=== PATIENT | male | born 1940 | race Caucasian/White ===

== ENCOUNTER → 2016-07-06 | Outpatient (CLI) | payer OTHER ==
[~2016-07-06] MED LIST: ACET325T96 PO; ALUM-30 PO; CHOL20005 PO; CLOTCRE33 TOP; MIRT15TA3 PO; MIRT30TA3 PO; MULT1CHW18 PO; NUTR-977 PO; OMEG10002 PO; SENN-91 PO
[2016-07-06 15:03] LABS: URINE APPEARANCE CLEAR (CLEAR); URINE BILIRUBIN NEG (NEG); URINE COLOR YELLOW; URINE NITRITE NEG (NEG); URINE SPECIFIC GRAVITY 1.026 (1.000-1.030); UROBILINOGEN NEG (NEG)
[2016-07-06 15:11] LABS: MANUAL MICROSCOPIC REQUIRED? NO; REVIEW REQ? NO
--- NOTE | 2016-07-07 07:45 | CODING QUERY NO DIAGNOSIS ---
TREATMENT RENDERED WITHOUT A DIAGNOSIS To promote full compliance with coding requirements relating to patient care, physician participation is requested in all cases of funeral car driver uncertainty. Please assist us with providing a diagnosis/symptom for the test(s) below: A diagnosis/symptom was not documented on your Order. A valid diagnosis/symptom is required to bill all insurances. Please remember that we are unable to code a diagnosis of rule out, probable, possible, questionable, or suspected. Tests that require a diagnosis: DOS 07/06 * UA C&S DIAGNOSIS: Provider Signature: Date: Thank you Syl Huerta Health Information Management Once completed, please kindly fax back to [phone] For questions please call [phone]
== END | disposition home or self-care (01) ==
LOC: C.LABSPEC 14:41
PROVIDERS: ATTEND Nurse Practitioner
DX: R32 Unspecified urinary incontinence (principal); R26.9 Unspecified abnormalities of gait and mobility; R41.82 Altered mental status, unspecified; F03.90 Unspecified dementia, unspecified severity, without behavioral disturbance, psychotic disturbance, mood disturbance, and anxiety; R68.89 Other general symptoms and signs

== ENCOUNTER 2016-10-03 18:37 | Emergency (ER) | payer OTHER ==
[2016-10-03 18:40] VITALS: TEMP 37.1
[2016-10-03] MEDS ORDERED: SODIUM CHLORIDE 0.9% 500ML 500 ML IV STA (18:48)
[2016-10-03] MEDS ORDERED: ACETAMINOPHEN 500 MG TAB PO STA (18:48)
[2016-10-03 18:59] LABS: BASO % 0.4 %; BASO ABS # 0.04 K/uL (0-0.2); COMPLETE YES; EOS % 4.8 %; HEMATOCRIT 42.2 % (42-52); IG% 0.6 %; LYMPH % 23.2 %; LYMPH ABS # 2.21 K/uL (1.2-3.4); MEAN CORPUSCULAR HEMOGLOBIN 30.5 pg (25-34); MEAN CORPUSCULAR HGB CONC 33.9 g/dl (32-36); MEAN PLATELET VOLUME 10.2 fL (7.4-10.4); MONO % 16.5 %; NEUT % 54.5 %; PLATELET COUNT 180 K/uL (130-400); RED BLOOD COUNT 4.69 M/uL (4.7-6.1); WHITE BLOOD COUNT 9.53 K/uL (4.8-10.8)
[2016-10-03 19:08] LABS: PARTIAL THROMBOPLASTIN RATIO 1.1; PROTHROMBIN TIME (PATIENT) 10.5 SECONDS (9.0-12.0)
--- NOTE | 2016-10-03 19:13 | EMERGENCY ROOM VISIT NOTE ---
History Report prepared by Francy: Pau Cheney Under the Supervision of: Markel SpannO. First contact with patient: 18:39 Chief Complaint: FALL Stated Complaint: FALL/ HEAD PAIN, AMS History of Present Illness The patient is a 76 year old male who presents to the Emergency Room with complaints of constant AMS beginning CUT OFF SAW OPERATOR METAL. The patient resides in the Dementia Unit at [facility]. Per staff there, the patient had an unwitnessed fall yesterday. Today they think that the patient appears more altered than usual and was having trouble ambulating. The patient does not have any complaints at this time. He denies abdominal pain, nausea, vomiting, headache, neck pain, and back pain. His sister is at the bedside. She was visiting with the patient at [facility] earlier today and thought that he seemed to be more tired and weak than usual. He is not on any blood thinners. The HPI is limited due to the patient's AMS. Source of History: patient, family, nursing staff History Limited By: AMS Onset: CUT OFF SAW OPERATOR METAL Position: other (global) Quality: other (altered) Timing: constant Associated Symptoms: + fatigue, + weakness, No headache, No neck pain, No nausea, No vomiting, No abdominal pain, No back pain Review of Systems ROS is limited due to the patient's AMS. Past Medical & Surgical Medical Problems: (1) Dementia, unspecified, without behavioral disturbance Family History Non-pertinent due to advanced age. Social History Smoking Status: Never Smoker Smokeless Tobacco Use: No Alcohol Use: none Drug Use: none Housing Status: halfway Occupation Status: retired Current/Historical Medications Scheduled Cholecalciferol (Vitamin D3), 2,000 UNITS PO QAM Clotrimazole W/ Betamethasone (Lotrisone), 1 APPLN TOP BID Enteral Nutrition Formula (Ensure Plus Vanilla), 1 CAN PO BID Mirtazapine (Remeron), 30 MG PO HS Multiple Vitamins W/ Minerals (Multivitamin Gummies Adul), 1 TAB PO QAM [place]-3 Fatty Acids (Fish Oil), 1,000 MG PO QAM Scheduled PRN Acetaminophen Tab (Tylenol), 650 MG PO Q4 PRN for Pain Alum & Mag Hydrox-Simethicone (Mylanta), 1 ML PO UD PRN for Nausea Mirtazapine (Remeron), 7.5 MG PO HS PRN for Insomnia Sennosides-Docusate Sodium (Senna S), 2 TAB PO DAILY PRN for Constipation Allergies Coded Allergies: No Known Allergies (Unverified , 10/03/16) Physical Exam Vital Signs Date Time Temp Pulse Resp B/P (MAP) Pulse Ox O2 Delivery O2 Flow Rate FiO2 10/03/16 21:42 82 18 124/78 97 10/03/16 20:30 90 18 120/85 Room Air 10/03/16 19:29 96 Room Air 10/03/16 19:29 96 Room Air 10/03/16 19:08 96 10/03/16 18:40 37.1 101 20 119/79 95 Room Air Physical Exam GENERAL: Patient is awake, alert, mildly anxious appearing and aggressive. He calms down when family member enters the room. EYES: The conjunctivae are clear. The pupils are round and reactive. EARS, NOSE, MOUTH AND THROAT: The nose is without any evidence of any deformity. Mucous membranes are moist tongue is midline NECK: The neck is nontender to palpation and ROM appeared intact. RESPIRATORY: Normal respiratory effort is noted there is no evidence of wheezing rhonchi or rales CARDIOVASCULAR: Regular rate and rhythm noted there no murmurs rubs or gallops normal S1 normal S2 GASTROINTESTINAL: The abdomen is soft. Bowel sounds are present in all quadrants. Abdomen is nontender MUSCULOSKELETAL/EXTREMITIES: There is no evidence of gross deformity full range of motion is noted in the hips and shoulders SKIN: There is no obvious evidence of any rash. There are no petechiae, pallor or cyanosis noted. NEUROLOGIC: At baseline according to family member. Medical Decision & Procedures ER Provider Diagnostic Interpretation: Radiology results as stated below per my review and radiologist interpretation: CT HEAD WITHOUT CONTRAST (CT) CLINICAL HISTORY: Head trauma. Change in mental status. COMPARISON STUDY: No previous studies for comparison. TECHNIQUE: Axial CT of the brain is performed from the vertex to the skull base. IV contrast was not administered for this examination. CT DOSE: 1577.93 mGy.cm FINDINGS: No intra or extra-axial mass lesions are visualized. There is no CT evidence of acute cortical infarction. There is no evidence of midline shift. There is no acute hemorrhage. No calvarial fractures are visualized. There are moderate white matter hypodensities likely on a small vessel basis. There is extensive atrophy There is ventricular dilatation, in keeping with the degree of volume loss. There is a sphenoid sinus retention cyst. There is mild mucosal thickening involving multiple ethmoid air cells. There are no air-fluid levels present. IMPRESSION: No acute intracranial findings Electronically signed by: Nile Mera M.D. 10/03/2016 8:00 PM Dictated Date/Time: 10/03/2016 7:59 PM CHEST ONE VIEW PORTABLE CLINICAL HISTORY: Altered mental status. COMPARISON STUDY: No previous studies for comparison. FINDINGS: The heart is normal in size. There is mild nonspecific interstitial thickening. There is no lobar consolidation. There is no overt failure.[ IMPRESSION: Mild nonspecific age-indeterminate interstitial thickening with a basilar predominance Electronically signed by: Nile Mera M.D. 10/03/2016 7:15 PM Dictated Date/Time: 10/03/2016 7:[address] OF THE CERVICAL SPINE CLINICAL HISTORY: Neck pain status post trauma COMPARISON STUDY: No previous studies for comparison. CT DOSE: TECHNIQUE: CT scan of the cervical spine was performed from the skull base to the thoracic inlet. Images are reviewed in the axial, sagittal, and coronal planes. IV contrast was not administered for this examination. FINDINGS: There is a sphenoid sinus retention cyst The prevertebral soft tissues are normal. No fractures or subluxations are visualized. There are multilevel degenerative changes IMPRESSION: No evidence of acute fracture or traumatic subluxation. Electronically signed by: Nile Mera M.D. 10/03/2016 8:05 PM Dictated Date/Time: 10/03/2016 8:03 PM Laboratory Results 10/03/16 18:40 Red Blood Count 4.69, Mean Corpuscular Volume 90.0, Mean Corpuscular Hemoglobin 30.5, Mean Corpuscular Hemoglobin Concent 33.9, Mean Platelet Volume 10.2, Neutrophils (%) (Auto) 54.5, Lymphocytes (%) (Auto) 23.2, Monocytes (%) (Auto) 16.5, Eosinophils (%) (Auto) 4.8, Basophils (%) (Auto) 0.4, Neutrophils # (Auto ) 5.19, Lymphocytes # (Auto) 2.21, Monocytes # (Auto) 1.57, Eosinophils # (Auto ) 0.46, Basophils # (Auto) 0.04 6/11/17 18:40 Test 10/03/16 18:40 10/03/16 19:23 10/03/16 20:30 White Blood Count 9.53 K/uL (4.8-10.8) Red Blood Count 4.69 M/uL (4.7-6.1) Hemoglobin 14.3 g/dL (14.0-18.0) Hematocrit 42.2 % (42-52) Mean Corpuscular Volume 90.0 fL (80-100) Mean Corpuscular Hemoglobin 30.5 pg (25-34) Mean Corpuscular Hemoglobin Concent 33.9 g/dl (32-36) Platelet Count 180 K/uL (130-400) Mean Platelet Volume 10.2 fL (7.4-10.4) Neutrophils (%) (Auto) 54.5 % Lymphocytes (%) (Auto) 23.2 % Monocytes (%) (Auto) 16.5 % Eosinophils (%) (Auto) 4.8 % Basophils (%) (Auto) 0.4 % Neutrophils # (Auto) 5.19 K/uL (1.4-6.5) Lymphocytes # (Auto) 2.21 K/uL (1.2-3.4) Monocytes # (Auto) 1.57 K/uL (0.11-0.59) Eosinophils # (Auto) 0.46 K/uL (0-0.5) Basophils # (Auto) 0.04 K/uL (0-0.2) RDW Standard Deviation 46.2 fL (36.4-46.3) RDW Coefficient of Variation 14.0 % (11.5-14.5) Immature Granulocyte % (Auto) 0.6 % Immature Granulocyte # (Auto) 0.06 K/uL (0.00-0.02) Prothrombin Time 10.5 SECONDS (9.0-12.0) Prothromb Time International Ratio 1.0 (0.9-1.1) Activated Partial Thromboplast Time 27.5 SECONDS (21.0-31.0) Partial Thromboplastin Ratio 1.1 Anion Gap 8.0 mmol/L (3-11) Estimated GFR () 66.7 Estimated GFR (Non- 57.6 BUN/Creatinine Ratio 20.1 (10-20) Calcium Level 8.9 mg/dl (8.5-10.1) Magnesium Level 2.1 mg/dl (1.8-2.4) Total Bilirubin 0.5 mg/dl (0.2-1) Direct Bilirubin < 0.1 mg/dl (0-0.2) Aspartate Amino Transf (AST/SGOT) 22 U/L (15-37) Alanine Aminotransferase (ALT/SGPT) 29 U/L (12-78) Alkaline Phosphatase 82 U/L (45-117) Total Creatine Kinase 217 U/L (39-308) Creatine Kinase MB 4.8 ng/ml (0.5-3.6) Creatine Kinase MB Ratio 2.2 (0-3.0) Troponin I < 0.015 ng/ml (0-0.045) Total Protein 7.2 gm/dl (6.4-8.2) Albumin 3.4 gm/dl (3.4-5.0) Thyroid Stimulating Hormone (TSH) 2.120 uIu/ml (0.300-4.500) Bedside Glucose 103 mg/dl (70-99) Urine Color DK YELLOW Urine Appearance CLEAR (CLEAR) Urine pH 5.0 (4.5-7.5) Urine Specific [place] 1.029 (1.000-1.030) Urine Protein NEG (NEG) Urine Glucose (UA) NEG (NEG) Urine Ketones TRACE (NEG) Urine Occult Blood NEG (NEG) Urine Nitrite NEG (NEG) Urine Bilirubin NEG (NEG) Urine Urobilinogen NEG (NEG) Urine Leukocyte Esterase NEG (NEG) Laboratory results per my review. Medications Administered Medications (Trade) Dose Ordered Sig/Rosa Route Start Time Stop Time Status Last Admin Dose Admin Acetaminophen (Tylenol Tab) 1,000 mg NOW STAT PO 10/03/16 18:48 10/03/16 18:50 DC 10/03/16 19:07 1,000 MG Sodium Chloride 500 ml @ 999 mls/hr Q31M STAT IV 10/03/16 18:48 10/03/16 19:18 DC 10/03/16 18:48 999 MLS/HR ECG Indication: altered mental status Rate (beats per minute): 97 Rhythm: normal sinus Findings: no acute ischemic change, no ectopy Comparison ECG Date: no prior available ED Course 1839: The patient was evaluated in room A11B. A complete history and physical examination were performed. 1848: NSS 500 ml @ 999 mls/hr IV, Acetaminophen 1000 mg PO 2055: I reassessed the patient at this time. He is resting comfortably. I discussed the results and treatment plan with the patient's sister. I answered all pertaining questions that she had. She expressed understanding and verbalized agreement The patient will be discharged back to [facility]. Medical Decision Differential diagnosis: Etiologies such as metabolic, infection, hypoglycemia, electrolyte abnormalities , cardiac sources, intracerebral event, toxicologic, neurologic, as well as others were entertained. Medication Reconciliation: I attest that I have personally reviewed the patient' s current medications list. Blood pressure screening: Patient was found to have normal blood pressure on screening and does not require follow-up. The patient is a 76-year-old male who presented to the emergency department for altered mental status. The patient lives at a personal correction and was sent to the emergency department because of frequent falls and altered mental status. The patient's sister presented to the emergency Department states that at this time he is at his normal mental status. There was a report of a low- grade fever as well. Patient's urinalysis and chest x-ray did not show any signs of infection. He was treated with IV fluids in the emergency department. He was able to be discharged home and encouraged follow-up with his primary care physician as soon as possible. Impression Primary Impression: Fall Additional Impressions: Head injury Altered mental status Scribe Attestation The scribe's documentation has been prepared under my direction and personally reviewed by me in its entirety. I confirm that the note above accurately reflects all work, treatment, procedures, and medical decision making performed by me. Departure Information Dispostion Home / Self-Care Referrals [facility] (PCP) Forms HOME CARE DOCUMENTATION FORM, IMPORTANT VISIT INFORMATION Patient Instructions My [facility], Trauma Head Additional Instructions Continue all medications as prescribed. Follow-up with your family this week. Problem Qualifiers Primary Impression: Fall Encounter type: initial encounter Qualified Codes: W19.XXXA - Unspecified fall, initial encounter Additional Impressions: Head injury Encounter type: initial encounter Qualified Codes: S09.90XA - Unspecified injury of head, initial encounter Altered mental status Altered mental status type: unspecified Qualified Codes: R41.82 - Altered mental status, unspecified
--- NOTE | 2016-10-03 19:16 | DIAGNOSTIC IMAGING REPORT ---
CHEST ONE VIEW PORTABLE CLINICAL HISTORY: Altered mental status. COMPARISON STUDY: No previous studies for comparison. FINDINGS: The heart is normal in size. There is mild nonspecific interstitial thickening. There is no lobar consolidation. There is no overt failure.[ IMPRESSION: Mild nonspecific age-indeterminate interstitial thickening with a basilar predominance Electronically signed by: Nile Mera M.D. 10/03/2016 7:15 PM Dictated Date/Time: 10/03/2016 7:14 PM
[2016-10-03 19:17] LABS: ALT/SGPT 29 U/L (12-78); AST/SGOT 22 U/L (15-37); BLOOD UREA NITROGEN 24 mg/dl (7-18); BUN/CREATININE RATIO 20.1 (10-20); CALCIUM 8.9 mg/dl (8.5-10.1); CARBON DIOXIDE 26 mmol/L (21-32); CHLORIDE 107 mmol/L (98-107); GLUCOSE 94 mg/dl (70-99); MAGNESIUM 2.1 mg/dl (1.8-2.4); POTASSIUM 4.2 mmol/L (3.5-5.1); SODIUM 141 mmol/L (136-145)
[2016-10-03 19:28] LABS: ALKALINE PHOSPHATASE 82 U/L (45-117); CKMB/CK RATIO 2.2 (0-3.0)
[2016-10-03 19:29] VITALS: O2SAT 96
--- NOTE | 2016-10-03 20:02 | DIAGNOSTIC IMAGING REPORT ---
CT HEAD WITHOUT CONTRAST (CT) CLINICAL HISTORY: Head trauma. Change in mental status. COMPARISON STUDY: No previous studies for comparison. TECHNIQUE: Axial CT of the brain is performed from the vertex to the skull base. IV contrast was not administered for this examination. CT DOSE: 1577.93 mGy.cm FINDINGS: No intra or extra-axial mass lesions are visualized. There is no CT evidence of acute cortical infarction. There is no evidence of midline shift. There is no acute hemorrhage. No calvarial fractures are visualized. There are moderate white matter hypodensities likely on a small vessel basis. There is extensive atrophy There is ventricular dilatation, in keeping with the degree of volume loss. There is a sphenoid sinus retention cyst. There is mild mucosal thickening involving multiple ethmoid air cells. There are no air-fluid levels present. IMPRESSION: No acute intracranial findings Electronically signed by: Nile Mera M.D. 10/03/2016 8:00 PM Dictated Date/Time: 10/03/2016 7:59 PM
--- NOTE | 2016-10-03 20:06 | DIAGNOSTIC IMAGING REPORT ---
CT OF THE CERVICAL SPINE CLINICAL HISTORY: Neck pain status post trauma COMPARISON STUDY: No previous studies for comparison. CT DOSE: TECHNIQUE: CT scan of the cervical spine was performed from the skull base to the thoracic inlet. Images are reviewed in the axial, sagittal, and coronal planes. IV contrast was not administered for this examination. FINDINGS: There is a sphenoid sinus retention cyst The prevertebral soft tissues are normal. No fractures or subluxations are visualized. There are multilevel degenerative changes IMPRESSION: No evidence of acute fracture or traumatic subluxation. Electronically signed by: Nile Mera M.D. 10/03/2016 8:05 PM Dictated Date/Time: 10/03/2016 8:03 PM
[2016-10-03] MEDS ORDERED: MIRT30TA3 PO (20:14)
[2016-10-03] MEDS ORDERED: SENN-91 PO (20:14)
[2016-10-03] MEDS ORDERED: CHOL20005 PO (20:14)
[2016-10-03] MEDS ORDERED: MIRT15TA3 PO (20:14)
[2016-10-03] MEDS ORDERED: NUTR-977 PO (20:14)
[2016-10-03] MEDS ORDERED: MULT1CHW18 PO (20:14)
[2016-10-03] MEDS ORDERED: CLOTCRE33 TOP (20:14)
[2016-10-03] MEDS ORDERED: ALUM-30 PO (20:14)
[2016-10-03] MEDS ORDERED: ACET325T96 PO (20:14)
[2016-10-03] MEDS ORDERED: OMEG10002 PO (20:14)
[2016-10-03 20:45] LABS: URINE APPEARANCE CLEAR (CLEAR); URINE BILIRUBIN NEG (NEG); URINE COLOR DK YELLOW; URINE NITRITE NEG (NEG); URINE SPECIFIC GRAVITY 1.029 (1.000-1.030); UROBILINOGEN NEG (NEG)
[2016-10-03 20:46] LABS: MANUAL MICROSCOPIC REQUIRED? NO; REVIEW REQ? NO
[2016-10-03 21:42] VITALS: BP 124/78; PULSE 82; O2SAT 97
== END 2016-10-03 21:40 | disposition home or self-care (01) ==
LOC: EDBD 18:37 → C.EDA 18:38
DX: S09.90XA Unspecified injury of head, initial encounter (principal); R41.82 Altered mental status, unspecified; W19.XXXA Unspecified fall, initial encounter; F03.90 Unspecified dementia, unspecified severity, without behavioral disturbance, psychotic disturbance, mood disturbance, and anxiety; R50.9 Fever, unspecified

== ENCOUNTER 2016-10-06 16:45 | Emergency (ER) | payer OTHER ==
[2016-10-06 17:09] VITALS: TEMP 36.8
[2016-10-06] MEDS ORDERED: SODIUM CHLORIDE 0.9% 500ML 500 ML IV STA (17:16)
[2016-10-06 17:58] LABS: BASO % 0.3 %; BASO ABS # 0.03 K/uL (0-0.2); COMPLETE YES; EOS % 1.7 %; HEMATOCRIT 45.2 % (42-52); IG% 0.6 %; LYMPH % 13.7 %; MEAN CELL VOLUME 89.7 fL (80-100); MEAN CORPUSCULAR HEMOGLOBIN 28.6 pg (25-34); MEAN CORPUSCULAR HGB CONC 31.9 g/dl (32-36); MEAN PLATELET VOLUME 9.3 fL (7.4-10.4); MONO % 8.1 %; NEUT % 75.6 %; PLATELET COUNT 189 K/uL (130-400); RED BLOOD COUNT 5.04 M/uL (4.7-6.1); WHITE BLOOD COUNT 10.97 K/uL (4.8-10.8)
[2016-10-06 18:18] LABS: BLOOD UREA NITROGEN 23 mg/dl (7-18); BUN/CREATININE RATIO 17.8 (10-20); CALCIUM 9.1 mg/dl (8.5-10.1); CARBON DIOXIDE 30 mmol/L (21-32); CHLORIDE 109 mmol/L (98-107); GLUCOSE 72 mg/dl (70-99); POTASSIUM 4.3 mmol/L (3.5-5.1); SODIUM 145 mmol/L (136-145)
--- NOTE | 2016-10-06 18:42 | EMERGENCY ROOM VISIT NOTE ---
History Report prepared by Francy: Merly Byrne Under the Supervision of: Dr. Randell Abreu M.D. 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 The patient comes from [facility] by EMS. EMS report that the staff at [facility] found the patient unresponsive. He was unresponsive for a few seconds. They report that he was pale and diaphoretic. He was seen in the ED recently for a similar episode and sent home. The patient reports that he was just messing around at [facility]. He denies being in any pain or having any complaints. The history is limited due to the patient dementia. Source of History: patient, EMS Onset: SUPERVISOR SCREEN PRINTING Position: other (global) Quality: other (unresponsive) Timing: other (episodic) Associated Symptoms: + diaphoresis Review of Systems See HPI for pertinent positives & negatives. A total of 10 systems reviewed and were otherwise negative. Past Medical & Surgical Medical Problems: (1) Dementia, unspecified, without behavioral disturbance Family History Noncontributory secondary to age. Social History Smoking Status: Never Smoker Alcohol Use: none Drug Use: none Housing Status: jail Occupation Status: retired Current/Historical Medications Scheduled Cholecalciferol (Vitamin D3), 2,000 UNITS PO QAM Clotrimazole W/ Betamethasone (Lotrisone), 1 APPLN TOP BID Enteral Nutrition Formula (Ensure Plus Vanilla), 1 CAN PO BID Mirtazapine (Remeron), 15 MG PO HS Multiple Vitamins W/ Minerals (Multivitamin Gummies Adul), 1 TAB PO QAM [place]-3 Fatty Acids (Fish Oil), 1,000 MG PO QAM Scheduled PRN Acetaminophen Tab (Tylenol), 650 MG PO Q4 PRN for Pain Alum & Mag Hydrox-Simethicone (Mylanta), 1 ML PO UD PRN for Nausea Mirtazapine (Remeron), 7.5 MG PO HS PRN for Insomnia Sennosides-Docusate Sodium (Senna S), 2 TAB PO DAILY PRN for Constipation Allergies Coded Allergies: No Known Allergies (Unverified , 10/06/16) Physical Exam Vital Signs Date Time Temp Pulse Resp B/P (MAP) Pulse Ox O2 Delivery O2 Flow Rate FiO2 10/06/16 20:32 85 18 120/69 99 10/06/16 18:26 72 108/74 96 10/06/16 17:09 36.8 99 20 121/62 94 Room Air Physical Exam GENERAL: Patient is elderly, moderate dementia. HEENT: No acute trauma, normocephalic atraumatic, mucous membranes moist, no nasal congestion, no scleral icterus. NECK: No stridor, no adenopathy, no meningismus, trachea is midline. LUNGS: No dyspnea. Clear to auscultation and equal bilaterally. No wheeze, no rhonchi. HEART: Regular rate and rhythm. No murmurs, rubs, gallops appreciated. ABDOMEN: Soft, nontender, bowel sounds positive, no masses appreciated, no peritonitis. BACK: No midline tenderness, no CVA tenderness EXTREMITIES: Normal motion all extremities, no cyanosis, no edema. NEUROLOGIC: Alert and oriented, no acute motor or sensory deficits, no focal weakness, cranial nerves grossly intact. SKIN: No rash, no jaundice, no diaphoresis. Medical Decision & Procedures Laboratory Results 10/06/16 17:45 Red Blood Count 5.04, Mean Corpuscular Volume 89.7, Mean Corpuscular Hemoglobin 28.6, Mean Corpuscular Hemoglobin Concent 31.9, Mean Platelet Volume 9.3, Neutrophils (%) (Auto) 75.6, Lymphocytes (%) (Auto) 13.7, Monocytes (%) (Auto) 8.1, Eosinophils (%) (Auto) 1.7, Basophils (%) (Auto) 0.3, Neutrophils # (Auto) 8.29, Lymphocytes # (Auto) 1.50, Monocytes # (Auto) 0.89, Eosinophils # (Auto) 0.19, Basophils # (Auto) 0.03 10/06/16 17:45 Test 10/06/16 17:45 White Blood Count 10.97 K/uL (4.8-10.8) Red Blood Count 5.04 M/uL (4.7-6.1) Hemoglobin 14.4 g/dL (14.0-18.0) Hematocrit 45.2 % (42-52) Mean Corpuscular Volume 89.7 fL (80-100) Mean Corpuscular Hemoglobin 28.6 pg (25-34) Mean Corpuscular Hemoglobin Concent 31.9 g/dl (32-36) Platelet Count 189 K/uL (130-400) Mean Platelet Volume 9.3 fL (7.4-10.4) Neutrophils (%) (Auto) 75.6 % Lymphocytes (%) (Auto) 13.7 % Monocytes (%) (Auto) 8.1 % Eosinophils (%) (Auto) 1.7 % Basophils (%) (Auto) 0.3 % Neutrophils # (Auto) 8.29 K/uL (1.4-6.5) Lymphocytes # (Auto) 1.50 K/uL (1.2-3.4) Monocytes # (Auto) 0.89 K/uL (0.11-0.59) Eosinophils # (Auto) 0.19 K/uL (0-0.5) Basophils # (Auto) 0.03 K/uL (0-0.2) RDW Standard Deviation 45.5 fL (36.4-46.3) RDW Coefficient of Variation 13.8 % (11.5-14.5) Immature Granulocyte % (Auto) 0.6 % Immature Granulocyte # (Auto) 0.07 K/uL (0.00-0.02) Anion Gap 6.0 mmol/L (3-11) Estimated GFR () 60.6 Estimated GFR (Non- 52.3 BUN/Creatinine Ratio 17.8 (10-20) Calcium Level 9.1 mg/dl (8.5-10.1) Laboratory results as reviewed by me. Medications Administered Medications (Trade) Dose Ordered Sig/Rosa Route Start Time Stop Time Status Last Admin Dose Admin Sodium Chloride 500 ml @ 999 mls/hr Q31M STAT IV 10/06/16 17:16 10/06/16 17:46 DC 10/06/16 17:51 999 MLS/HR ED Course 1652: The patient was evaluated in room B7. A complete history and physical exam was performed. 1713: I spoke with the patients family. They informed me that the patients Remeron dose was increased recently and the patient was a zombie for 2 days. The dose was decreased again the patient has come back to normal. They also note that he has not eaten well for the past 2 days. They are agreeable to basic labs, IV, and IV fluids because he did not eat well. Otherwise he would not want any surgery, cardiopulmonary resuscitation, or ventilation. They believe CT is unnecessary as is a cardiac evaluation. 1716: NSS 500 ml @ 999 mls/hr IV. 1836: I reevaluated the patient. He is eating and happy. The family wishes for him to go back to [facility]. I discussed the results and treatment plan including fall risks. They verbalized understanding and agreement. They feel comfortable with him at [facility]. He was discharged home. Medical Decision Differential: Toxicological, Infectious, Stroke, SAH, Trauma, Electrolyte Abnormality, Hypoglycemia, Alcohol Intoxication, Drug Intoxication, Cardiac Abnormality, Sepsis, Meningitis/Encephalitis, Trauma, Excited Delirium, Serotonin Syndrome, Psychiatric, amongst other pathologies entertained. Medication Reconciliation: I attest that I have personally reviewed the patient 's current medication list. Blood Pressure Screening: Patient was found to have a slightly elevated blood pressure due to circumstances. I do not believe that the patient requires hypertension monitoring. 76 yr old male arrives via EMS [facility] jail. He initially was unresponsive and staring in to space my arrival to room but after a short few moments he cracked a smile and started laughing as he was faking AMS. Clearly awake and in no distress, continuing to laugh periodically about scaring me. Family arrived and make clear he is at his baseline. The also make clear he would not was CPR, nor surgery, and with that feel that ct's, cardiac work-up, etc unnecessary. Monitored for several hours in no distress and eating well. Labs unremarkable. Patient stable and in no distress. Family wish him to return to jail and feel comfortable with him there. Stable at discharge. Impression Primary Impression: Altered mental status Scribe Attestation The scribe's documentation has been prepared under my direction and personally reviewed by me in its entirety. I confirm that the note above accurately reflects all work, treatment, procedures, and medical decision making performed by me. Departure Information Dispostion Home / Self-Care Referrals Nguyen Rodríguez, C.R.N.P. (PCP) Additional Instructions Monitor closely and keep under fall precautions. Problem Qualifiers Primary Impression: Altered mental status Altered mental status type: transient alteration of awareness Qualified Codes : R40.4 - Transient alteration of awareness
[2016-10-06 20:32] VITALS: BP 120/69; PULSE 85; O2SAT 99
== END 2016-10-06 20:32 | disposition home or self-care (01) ==
LOC: EDBD 16:45 → C.EDB 16:46
DX: R40.4 Transient alteration of awareness (principal); F03.90 Unspecified dementia, unspecified severity, without behavioral disturbance, psychotic disturbance, mood disturbance, and anxiety

== ENCOUNTER 2016-10-12 14:34 | Emergency (ER) | payer OTHER ==
--- NOTE | 2016-10-12 15:04 | EMERGENCY ROOM VISIT NOTE ---
History Report prepared by Francy: Raisa Quintanilla Under the Supervision of: Dr. Dank Wadsworth D.O. First contact with patient: 14:50 Chief Complaint: FALL Stated Complaint: FALL History of Present Illness The patient is a 76 year old male who presents to the Emergency Room with complaints of a sudden fall that occurred prior to arrival. Per the patient's daughter, the patient has had several falls over the past several days. She reports that the patient has been given medication to relax him and notes that the mediation has been adjusted. The patient's daughter reports that the patient has been getting up out of bed and has been falling. The patient denies any shoulder pain, abdominal pain, or other pain. The patient's daughter reports that the patient resides at [facility] in their Assisted Living facility, but in their dementia unit. The history is limited secondary to the patient's dementia. Source of History: patient, family (daughter) History Limited By: dementia Onset: prior to arrival Position: other (global) Quality: other (fall) Timing: other (sudden) Associated Symptoms: No abdominal pain Review of Systems The history is limited secondary to the patient's dementia. Past Medical & Surgical Medical Problems: (1) Dementia, unspecified, without behavioral disturbance Family History No pertinent family history stated. Social History Smoking Status: Never Smoker Alcohol Use: none Drug Use: none Housing Status: senior care Occupation Status: retired Current/Historical Medications Scheduled Cholecalciferol (Vitamin D3), 2,000 UNITS PO QAM Clotrimazole W/ Betamethasone (Lotrisone), 1 APPLN TOP BID Enteral Nutrition Formula (Ensure Plus Vanilla), 1 CAN PO BID Multiple Vitamins W/ Minerals (Multivitamin Gummies Adul), 1 TAB PO QAM Taylor-3 Fatty Acids (Fish Oil), 1,000 MG PO QAM Scheduled PRN Acetaminophen Tab (Tylenol), 650 MG PO Q4 PRN for Pain Alum & Mag Hydrox-Simethicone (Mylanta), 1 ML PO UD PRN for Nausea Mirtazapine (Remeron), 7.5 MG PO HS PRN for Insomnia Sennosides-Docusate Sodium (Senna S), 2 TAB PO DAILY PRN for Constipation Allergies Coded Allergies: No Known Allergies (Unverified , 10/12/16) Physical Exam Vital Signs Date Time Temp Pulse Resp B/P (MAP) Pulse Ox O2 Delivery O2 Flow Rate FiO2 10/12/16 18:54 93 18 136/97 10/12/16 18:15 97 20 119/78 97 Room Air 10/12/16 16:30 96 18 124/80 96 Room Air 10/12/16 14:36 99 16 120/67 96 Physical Exam GENERAL: Patient is awake, alert, and in no acute distress. Patient is resting comfortably and showing no signs of anxiety EYES: The conjunctivae are clear. The pupils are round and reactive. EARS, NOSE, MOUTH AND THROAT: The nose is without any evidence of any deformity. Mucous membranes are moist tongue is midline NECK: The neck is nontender and supple. RESPIRATORY: Normal respiratory effort is noted there is no evidence of wheezing rhonchi or rales CARDIOVASCULAR: Regular rate and rhythm noted there no murmurs rubs or gallops normal S1 normal S2 GASTROINTESTINAL: The abdomen is soft. Bowel sounds are present in all quadrants. Abdomen is nontender BACK: No midline tenderness or or step-off noted range of motion in flexion extension as well as rotation no signs of muscle spasm noted MUSCULOSKELETAL/EXTREMITIES: There is no evidence of gross deformity full range of motion is noted in the hips and shoulders SKIN: There is no obvious evidence of any rash. There are no petechiae, pallor or cyanosis noted. NEUROLOGIC: Patient is at baseline according to family member. Moving all extremities symmetrically. Medical Decision & Procedures ER Provider Diagnostic Interpretation: Radiology results as stated below per my review and radiologist interpretation: CT HEAD WITHOUT CONTRAST (CT) CLINICAL HISTORY: Head trauma. Change in mental status. COMPARISON STUDY: 10/03/2016 TECHNIQUE: Axial CT of the brain is performed from the vertex to the skull base. IV contrast was not administered for this examination. CT DOSE: 614.27 mGy.cm FINDINGS: No intra or extra-axial mass lesions are visualized. There is no CT evidence of acute cortical infarction. There is no evidence of midline shift. There is no acute hemorrhage. No calvarial fractures are visualized. There are bilateral extensive white matter hypodensities likely on a small vessel basis. There is generalized atrophy. There is no evidence of pathologic ventricular dilatation. There is a stable sphenoid sinus polyp/retention cyst. There is opacification of multiple ethmoid air cells. IMPRESSION: No acute intracranial findings Electronically signed by: Nile Mera M.D. 10/12/2016 3:42 PM Dictated Date/Time: 10/12/2016 3:39 PM CHEST ONE VIEW PORTABLE CLINICAL HISTORY: Trauma. Pain radiating to the abdomen. COMPARISON STUDY: 10/03/2016 FINDINGS: The cardiac and mediastinal contours remain stable. There is no pneumothorax. There is no free intraperitoneal air. There is no focal pulmonary consolidation. No pleural effusions are visualized. There is mild interstitial thickening, similar to the prior study.[ IMPRESSION: AP portable study. No acute findings. Electronically signed by: Nile Mera M.D. 10/12/2016 4:19 PM Dictated Date/Time: 10/12/2016 4:18 PM Laboratory Results 10/12/16 16:30 Red Blood Count 5.05, Mean Corpuscular Volume 88.7, Mean Corpuscular Hemoglobin 29.5, Mean Corpuscular Hemoglobin Concent 33.3, Mean Platelet Volume 10.2, Neutrophils (%) (Auto) 63.7, Lymphocytes (%) (Auto) 22.9, Monocytes (%) (Auto) 8.2, Eosinophils (%) (Auto) 4.1, Basophils (%) (Auto) 0.3, Neutrophils # (Auto) 6.18, Lymphocytes # (Auto) 2.22, Monocytes # (Auto) 0.80, Eosinophils # (Auto) 0.40, Basophils # (Auto) 0.03 10/12/16 16:30 Test 10/12/16 15:45 10/12/16 16:30 Urine Color YELLOW Urine Appearance CLEAR (CLEAR) Urine pH 6.0 (4.5-7.5) Urine Specific [place] 1.022 (1.000-1.030) Urine Protein NEG (NEG) Urine Glucose (UA) NEG (NEG) Urine Ketones TRACE (NEG) Urine Occult Blood NEG (NEG) Urine Nitrite NEG (NEG) Urine Bilirubin NEG (NEG) Urine Urobilinogen NEG (NEG) Urine Leukocyte Esterase NEG (NEG) Urine WBC (Auto) 0 /hpf (0-5) Urine RBC (Auto) 0-4 /hpf (0-4) Urine Hyaline Casts (Auto) 0 /lpf (0-5) Urine Epithelial Cells (Auto) 0-5 /lpf (0-5) Urine Bacteria (Auto) NEG (NEG) White Blood Count 9.71 K/uL (4.8-10.8) Red Blood Count 5.05 M/uL (4.7-6.1) Hemoglobin 14.9 g/dL (14.0-18.0) Hematocrit 44.8 % (42-52) Mean Corpuscular Volume 88.7 fL (80-100) Mean Corpuscular Hemoglobin 29.5 pg (25-34) Mean Corpuscular Hemoglobin Concent 33.3 g/dl (32-36) Platelet Count 216 K/uL (130-400) Mean Platelet Volume 10.2 fL (7.4-10.4) Neutrophils (%) (Auto) 63.7 % Lymphocytes (%) (Auto) 22.9 % Monocytes (%) (Auto) 8.2 % Eosinophils (%) (Auto) 4.1 % Basophils (%) (Auto) 0.3 % Neutrophils # (Auto) 6.18 K/uL (1.4-6.5) Lymphocytes # (Auto) 2.22 K/uL (1.2-3.4) Monocytes # (Auto) 0.80 K/uL (0.11-0.59) Eosinophils # (Auto) 0.40 K/uL (0-0.5) Basophils # (Auto) 0.03 K/uL (0-0.2) RDW Standard Deviation 44.7 fL (36.4-46.3) RDW Coefficient of Variation 13.7 % (11.5-14.5) Immature Granulocyte % (Auto) 0.8 % Immature Granulocyte # (Auto) 0.08 K/uL (0.00-0.02) Prothrombin Time 10.4 SECONDS (9.0-12.0) Prothromb Time International Ratio 1.0 (0.9-1.1) Activated Partial Thromboplast Time 25.9 SECONDS (21.0-31.0) Partial Thromboplastin Ratio 1.0 Anion Gap 6.0 mmol/L (3-11) Estimated GFR () 83.2 Estimated GFR (Non- 71.8 BUN/Creatinine Ratio 17.1 (10-20) Calcium Level 9.3 mg/dl (8.5-10.1) Total Bilirubin 0.4 mg/dl (0.2-1) Direct Bilirubin < 0.1 mg/dl (0-0.2) Aspartate Amino Transf (AST/SGOT) 17 U/L (15-37) Alanine Aminotransferase (ALT/SGPT) 26 U/L (12-78) Alkaline Phosphatase 91 U/L (45-117) Total Creatine Kinase 67 U/L (39-308) Total Protein 7.6 gm/dl (6.4-8.2) Albumin 3.6 gm/dl (3.4-5.0) Lipase 184 U/L (73-393) Laboratory results per my review. Medications Administered Medications (Trade) Dose Ordered Sig/Rosa Route Start Time Stop Time Status Last Admin Dose Admin Sodium Chloride 1,000 ml @ 999 mls/hr Q1H1M STAT IV 10/12/16 16:05 10/12/16 17:05 DC 10/12/16 16:05 999 MLS/HR ED Course 1455: The patient was evaluated in room B6. A complete history and physical examination were performed. 1600: I reevaluated the patient and his family is requesting more tests. 1605: Ordered Sodium Chloride 1000 ml @ 999 mls/hr IV. 1731: I reevaluated the patient and he is resting. I discussed the exam findings with the patients family and I discussed the treatment plan. They verbalized complete understanding and agreement. Medical Decision Differential diagnosis: Etiologies such as fracture, dislocation, intra-abdominal, pneumothorax, intrathoracic , intracranial, neurologic, as well as other traumatic pathologies were entertained. Nursing notes reviewed. Additional history is obtained from the patient's daughters. The patient is a 76-year-old male who presented to the emergency department for an evaluation. The patient reportedly had a fall with head injury and was sent from his personal [facility]. Additional history from his daughter reports that he had an episode this morning where he was very tearful and did not appear to be himself. I discussed the patient's laboratory and radiographic studies with him and his family members. On my evaluation the patient was awake and alert. He was able to eat without difficulty. He did not have any acute traumatic injury noted on CT the head. I discussed his case with the emergency Department correctional casework specialist and asked him to call the patient's personal fci to see if there was any other concerns. I did recommend that he have a follow-up appointment with his family doctor as well as a possible referral to a neurologist if symptoms appear to be more consistent with worsening dementia. Impression Primary Impression: Fall Additional Impressions: Head injury Dementia Scribe Attestation The scribe's documentation has been prepared under my direction and personally reviewed by me in its entirety. I confirm that the note above accurately reflects all work, treatment, procedures, and medical decision making performed by me. Departure Information Referrals Nguyen Rodríguez C.R.N.P. (PCP) Patient Instructions My [facility] Problem Qualifiers Primary Impression: Fall Encounter type: initial encounter Qualified Codes: W19.XXXA - Unspecified fall, initial encounter Additional Impressions: Head injury Encounter type: initial encounter Qualified Codes: S09.90XA - Unspecified injury of head, initial encounter Dementia Dementia type: unspecified type Dementia behavioral disturbance: without behavioral disturbance Qualified Codes: F03.90 - Unspecified dementia without behavioral disturbance
--- NOTE | 2016-10-12 15:44 | DIAGNOSTIC IMAGING REPORT ---
CT HEAD WITHOUT CONTRAST (CT) CLINICAL HISTORY: Head trauma. Change in mental status. COMPARISON STUDY: 10/03/2016 TECHNIQUE: Axial CT of the brain is performed from the vertex to the skull base. IV contrast was not administered for this examination. CT DOSE: 614.27 mGy.cm FINDINGS: No intra or extra-axial mass lesions are visualized. There is no CT evidence of acute cortical infarction. There is no evidence of midline shift. There is no acute hemorrhage. No calvarial fractures are visualized. There are bilateral extensive white matter hypodensities likely on a small vessel basis. There is generalized atrophy. There is no evidence of pathologic ventricular dilatation. There is a stable sphenoid sinus polyp/retention cyst. There is opacification of multiple ethmoid air cells. IMPRESSION: No acute intracranial findings Electronically signed by: Nile Mera M.D. 10/12/2016 3:42 PM Dictated Date/Time: 10/12/2016 3:39 PM
[2016-10-12] MEDS ORDERED: SODIUM CHLORIDE 0.9% 1000ML 1,000 ML IV STA (16:05)
--- NOTE | 2016-10-12 16:20 | DIAGNOSTIC IMAGING REPORT ---
CHEST ONE VIEW PORTABLE CLINICAL HISTORY: Trauma. Pain radiating to the abdomen. COMPARISON STUDY: 10/03/2016 FINDINGS: The cardiac and mediastinal contours remain stable. There is no pneumothorax. There is no free intraperitoneal air. There is no focal pulmonary consolidation. No pleural effusions are visualized. There is mild interstitial thickening, similar to the prior study.[ IMPRESSION: AP portable study. No acute findings. Electronically signed by: Nile Mera M.D. 10/12/2016 4:19 PM Dictated Date/Time: 10/12/2016 4:18 PM
[2016-10-12 16:40] LABS: BASO % 0.3 %; BASO ABS # 0.03 K/uL (0-0.2); COMPLETE YES; EOS % 4.1 %; HEMATOCRIT 44.8 % (42-52); IG% 0.8 %; LYMPH % 22.9 %; LYMPH ABS # 2.22 K/uL (1.2-3.4); MEAN CELL VOLUME 88.7 fL (80-100); MEAN CORPUSCULAR HEMOGLOBIN 29.5 pg (25-34); MEAN CORPUSCULAR HGB CONC 33.3 g/dl (32-36); MEAN PLATELET VOLUME 10.2 fL (7.4-10.4); MONO % 8.2 %; NEUT % 63.7 %; PLATELET COUNT 216 K/uL (130-400); RED BLOOD COUNT 5.05 M/uL (4.7-6.1); WHITE BLOOD COUNT 9.71 K/uL (4.8-10.8)
[2016-10-12 16:51] LABS: PROTHROMBIN TIME (PATIENT) 10.4 SECONDS (9.0-12.0)
[2016-10-12 16:58] LABS: ALT/SGPT 26 U/L (12-78); AST/SGOT 17 U/L (15-37); BLOOD UREA NITROGEN 17 mg/dl (7-18); BUN/CREATININE RATIO 17.1 (10-20); CALCIUM 9.3 mg/dl (8.5-10.1); CARBON DIOXIDE 29 mmol/L (21-32); CHLORIDE 106 mmol/L (98-107); GLUCOSE 103 mg/dl (70-99); POTASSIUM 4.2 mmol/L (3.5-5.1); SODIUM 141 mmol/L (136-145)
[2016-10-12 17:01] LABS: ALKALINE PHOSPHATASE 91 U/L (45-117)
[2016-10-12 17:12] LABS: MANUAL MICROSCOPIC REQUIRED? NO; REVIEW REQ? NO; URINE APPEARANCE CLEAR (CLEAR); URINE BILIRUBIN NEG (NEG); URINE COLOR YELLOW; URINE EPITHELIAL CELL AUTO 0-5 /lpf (0-5); URINE NITRITE NEG (NEG); URINE SPECIFIC GRAVITY 1.022 (1.000-1.030); UROBILINOGEN NEG (NEG); ZZURINE CULT IF INDIC CATH NO
[2016-10-12 18:15] VITALS: O2SAT 97
[2016-10-12 18:54] VITALS: BP 136/97; PULSE 93
== END 2016-10-12 18:55 ==
LOC: C.EDB 14:36
DX: S09.90XA Unspecified injury of head, initial encounter (principal); W06.XXXA Fall from bed, initial encounter; Y92.122 Bedroom in nursing home as the place of occurrence of the external cause; F03.90 Unspecified dementia, unspecified severity, without behavioral disturbance, psychotic disturbance, mood disturbance, and anxiety; R41.82 Altered mental status, unspecified